=== PATIENT | male | born 1985 | race Caucasian/White ===

== ENCOUNTER 2025-01-12 22:48 | Inpatient (IN) | payer MEDICARE, MEDICAID, SELFPAY ==
--- NOTE | 2025-01-12 23:18 | MHC.EDTECH ---
pt refused labs and urine sample. pt also stated that he hasn't consumed any food or drinks in years.
[2025-01-12 23:19] VITALS: BP 103/64; PULSE 76; RESP 18; TEMP 36.4; O2SAT 96
--- NOTE | 2025-01-12 23:23 | ED.PSYCH ---
HPI - Psych General Chief Complaint: Psychiatric Symptoms Stated Complaint: psych eval Time Seen by Provider: 01/12/25 23:16 Source: patient and EMS Mode of arrival: EMS Limitations: no limitations History of Present Illness ED Provider: Carol Brand NP HPI Narrative: Patient is a 39-year-old male who presents emergency department via EMS on a section 12 from . Evidently sister was concerned about him being missing and had contacted police. They were unsure of his whereabouts. Evidently he was found in his attic beneath insulation, apparently may have been there for approximately 16-24 hours without any oral intake. When asked why he was there he states ?I just worry myself I am scared?. He does not provide much further detail in regards to this. When asked whether he is taking any medications on a daily basis he states ?medications do not help me?. There was expressed concern from family that he may not be taking his olanzapine. He offers no physical complaints at this time. Denies suicidal or homicidal ideations. Denies recreational drug or alcohol usage. Denies auditory or visual hallucinations. Related Data Home Medications ?Medication ?Instructions ?Recorded ?Confirmed gabapentin 300 mg capsule 300 mg PO BID 01/13/25 01/13/25 hydroxyzine pamoate 50 mg capsule 50 mg PO TID 01/13/25 01/13/25 olanzapine 7.5 mg tablet 7.5 mg PO BEDTIME 01/13/25 01/13/25 trazodone 50 mg tablet 50 mg PO BEDTIME PRN insomnia 01/13/25 01/13/25 Allergies Allergy/AdvReac Type Severity Reaction Status Date / Time No Known Allergies Allergy Verified 01/12/25 23:35 Review of Systems Review of Systems: Yes all other systems are reviewed and are negative [facility] Past Medical History Attestation statement: The following information was validated with the patient. Source: old records reviewed Social History Social History Advance Directives: No Advance Directives Information Provided: No Do you have a plan to hurt others: No Plan Physical Exam Vital Signs: Vital Signs: Last Vital Signs Temp 98.5 F 01/13/25 15:34 Pulse 67 01/13/25 15:34 Resp 14 01/13/25 15:34 BP 99/60 01/13/25 15:34 Pulse Ox 97 01/13/25 15:34 O2 Del Method Room Air 01/13/25 15:34 BMI result Body Mass Index 25.2 Appearance: Alert.?Oriented to person, place and time. No acute distress.?Normal affect. Eyes: Pupils equal, round and reactive to light.? ENT: Pharynx normal.??Moist mucous membranes. Neck: Normal inspection.? Neck supple.?? CVS: Heart sounds normal. Normal heart rate and rhythm.? Pulses normal.?? Respiratory: No respiratory distress.? Lung sounds clear to auscultation bilaterally?? Abdomen: Soft and non-tender. Normoactive bowel sounds. Skin: Skin warm and dry.? Normal skin color.? Extremities: No lower extremity edema.? Neuro: Moves all extremities spontaneously. Sensation intact bilaterally. CN II-XII intact. No focal neuro deficits. Ambulates with normal steady gait. Course Course Course Narrative: Time: 07:21 Date: 01/13/25 Provider: Aruna Gonzalez, DO Patient in physician observation for psychiatric evaluation.? No acute events reported overnight other than refusing labs. No current complaints. VS stable.? pending CARE team evaluation. Will continue to monitor. Reevaluation(s) Reevaluation #1: labs from 01/10 [facility] as he is refusing labs Reevaluation #2: Time: 16:07 Date: 01/13/25 Provider: Aruna Gonzalez DO Physician observation ended at 407pm. Patient to be admitted as inpatient to psychiatry. Medical Decision Making Medical Decision Making [facility] Narrative: Patient is a 39-year-old male not known to this emergency department who presents on a section 12 for psychiatric evaluation, evidently has been missing for approximately 24 hours found to be hiding beneath insulation in the attic of his home, likely not having had any oral intake over the past 16-24 hours. He offers no physical complaints in his physical examination at this time is benign. When asked why he was there who does not provide any clear direct answer. [facility] may have been off of his olanzapine recently. Obtain serum labs for medical clearance, refer to care team for further evaluation safe disposition planning. Differential Diagnosis Differential Diagnoses: The differential diagnosis associated with the presentation includes (See narrative above and below for further detail) Admission/Observation Consideration of admission/observation: Escalation of care including admission/observation considered Patient is being observed in the Emergency Department for ?Paranoia, fear, and abnormal behaviors. Observation time was started at 00:50 on 01/14/2020.?The patient is currently stable and non-toxic appearing. Observation is being initiated in the Emergency Department to allow time to help differentiate if the patient's presentation is due to Substance Induced Mood Disorder and Anxiety versus Major Depressive Disorder, Bipolar Ana Maria, Bipolar Depression, and Schizophrenia. The patient will receive frequent psychiatric assessments from the provider as well as from nursing staff. The patient will also be monitored for the need of PRN agitation medications such as Haldol, Ativan, and Benadryl. Consult Healthcare Provider Management of the patient was discussed with: Behavioral Health Provider (CARE team) Lab Data MDM Lab Attestation statement: I reviewed the patient's lab results. Independent Historian Clinical information obtained from an independent historian. History obtained from or confirmed by: EMS Discharge Plan Discharge Clinical Impression: Acute psychosis Patient Disposition: Admitted As Inpatient
[2025-01-12 23:29] VITALS: BP 103/64; PULSE 76; RESP 16; TEMP 36.4; O2SAT 96; BMI 25.2
--- NOTE | 2025-01-13 02:45 | PC.NURSE ---
provider requested staff ask patient a second time for labs, as client previously had agreed.
--- NOTE | 2025-01-13 02:47 | MHC.EDTECH ---
Spoke to the patient, Patient stated He'll think about it. However refusing at this time.
--- NOTE | 2025-01-13 12:37 | MHC.EDTECH ---
patient politely declined to provide urine sample and have an EKG at this time. RN aware.
--- NOTE | 2025-01-13 12:45 | PC.NURSE ---
Patient continues to refuse to given urine sample or allow for ekg to be obtained
--- NOTE | 2025-01-13 13:11 | PC.NURSE ---
Patient continues to refuse labs, ekg, food/fluids. Patient aware that sister calls and she would like him to call her- shaking head no he does not want to speak to her. Provider aware
--- NOTE | 2025-01-13 15:12 | MHC.CARE ---
Pt assessed by the CARE Team and found IPLOC
[2025-01-13 15:34] VITALS: BP 99/60; PULSE 67; RESP 14; TEMP 36.9; O2SAT 97
--- NOTE | 2025-01-13 16:22 | PC.NURSE ---
Report given to RN on M3.
--- NOTE | 2025-01-13 16:31 | PC.NURSE ---
Addendum entered by Yanelis Ackerman RN 01/13/25 18:07: Pt gave verbal permission for me to speak with sister Darline by phone. She reports pt was at [place] 12/20 to 01/04/25 and was discharged, because he wasn't eating. Last psych hospitalization was 8 years before that. She states pt is having issues with gall bladder and has appt with GI surgeon for future cholecystectomy. Original Note: Audi was admitted to at 1600 from [facility] Pod on 12b ffor treatment of psychosis. He had been reported as a missing person x 2 days but was found laying under insulation in the attic of his home having no po intake for days (He has not had po intake in the ED either.) Family reportedly thinks he has not taken his prescribed olanzapine x several days. He is refusing labs including tox screen, ekg.? He reluctantly allowed plant changer/ skin check but declined vs on arrival.? He is alert but not willing to participate in admission assessment. Admission is therefore based on crisis eval. Mood is appears depressed. Affect is anxious and guarded. He appears hypervigilant. Thought Process is disorganized. He does not voice ideation, plan or intent to harm self or others. Per police report pt is ?in need of surgery? but pt declines to discuss. He denies physical complaint. Safety Checks are q 15 minutes.
[2025-01-13 18:10] VITALS: BMI 24.9
[2025-01-13 20:53] VITALS: RESP 16
--- NOTE | 2025-01-14 13:46 | P.HPPS_ITS ---
HPI Date of Service: 01/14/25 Chief Complaint: crisis Sources of Information: patient interviewed, chart reviewed and crisis/core team assessment reviewed HPI Subjective Notes: Section 12B Narrative: Patient is a 39 yo male who lives in [place] with family. Patient carries a diagnosis of schizoaffective disorder. Patient was brought to the hospital after he went missing for 24 hours and was found in his attic under the insulation hiding. Patient has been uncooperative providing history with ED, CARE team and this internal communications writer. He shrugs his shoulder or nods but is not communicating verbally. Patient has not been taking medications for at least the past 2 months but reported to be functional when taking his Olanzapine. Patient's sister reported to CARE team he has not been sleeping, acting scared and hasn't spoken to family last 2 weeks. Patient seen in his room. He is awake. Looks at the ceiling. Poor eye contact. Shrugs his shoulder when asked how he's feeling. Non-verbal. Internally preoccupied. Past Psychiatric History: - Prior inpatient treatment at [facility] and [facility] reported in CARE team assessment. - Hx of VNA services. Medical Evaluation Reviewed: Yes [facility] Family History: Brother OD, unknown if intentional Social History: Born and raised in [place] [facility] [place] age 13 when he moved to [facility]. Lives with family in [place]. . Has 3 children. On disability. 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 Substance History: none reported Trauma History: unknown Diagnostics Vital Signs (24Hr): Vital Signs - 24 hr 01/13/25 15:34 01/13/25 20:53 Temperature 98.5 F Pulse Rate 67 Respiratory Rate 14 16 Blood Pressure 99/60 Pulse Oximetry 97 Oxygen Delivery Method Room Air BMI result Body Mass Index 24.9 Meds/Allergies Meds Home Medications ?Medication ?Instructions ?Recorded ?Confirmed ?Type gabapentin 300 mg capsule 300 mg PO BID 01/13/25 01/13/25 History hydroxyzine pamoate 50 mg capsule 50 mg PO TID 01/13/25 01/13/25 History olanzapine 7.5 mg tablet 7.5 mg PO BEDTIME 01/13/25 01/13/25 History trazodone 50 mg tablet 50 mg PO BEDTIME PRN insomnia 01/13/25 01/13/25 History Allergies Allergies Allergy/AdvReac Type Severity Reaction Status Date / Time No Known Allergies Allergy Verified 01/12/25 23:35 Mental Status Exam Mental Status Exam Narrative: General appearance: covered self with blanket. Alert. Not communicating verbally. Stares at ceiling. Eye contact: Poor. Musculoskeletal: Normal muscle strength/tone, Normal gait and station, No abnormal involuntary movements like tremors, EPS or dyskinesia. No psychomotor agitation or retardation.??? Manner/behavior: Uncooperative Speech:? Not talking. Mood: No response. Did say he was scared in the CARE team assesment. Affect: Blunted Thought process/associations: Blocked?? Thought content:?Paranoid Hallucinations: Suspected. Internally preoccupied. Suicidality/self-destructive behavior: not reported Homicidally/violence: not reported.? Reliability: poor.? ? Judgment: poor.? ? Insight: poor Cognition: Alert Impulse control and emotional regulation: poor Intelligence estimate: average.? Assessment & Plan Assessment & Plan (1) Schizoaffective disorder: Status: Acute Code(s): F25.9 - Schizoaffective disorder, unspecified Plan 39 yo male with reported past history of schizoaffective disorder, admitted after going missing for 24 hours and found hiding in the attic under the attic insulation. He has not been taking his medicaitons for at least 2 months and has been showing functional decline, paranoia, anxiety, and behavioral change. PLAN: - Admit to inpatient psychiatry - CV - Collateral information from family and providers. - Milieu treatment and group therapy. - Medications: Restart Olanzapine. Start Ativan 1 mg TID for catatonia spectrum symptoms/behavior. Encourage medication compliance. - Social work evaluation. - Disposition planning. Patient educated on: therapeutic strategies Reason for continued inpatient stay Substantial Risk for: harm to self, inability to function and rapid decompensation Statement Statement: I have reviewed the history and physical and performed a pertinent examination on my patient. No changes have occurred unless specified. If the History and Physical was not performed prior to admission, the Hospitalist's service will be consulted for completing the admission physical. Time Spent With Patient Time: Total time managing care of this patient today ____ minutes.
--- NOTE | 2025-01-14 17:01 | PC.NURSE ---
Pt was offered the opportunity to complete UA order x2. He declined both times.
[2025-01-14 19:50] VITALS: RESP 16
[2025-01-15 10:50] VITALS: BP 101/57; PULSE 57; RESP 15; TEMP 36.9; O2SAT 97
--- NOTE | 2025-01-15 11:12 | PC.NURSE ---
This morning Deion declined am medications and vital signs. He shook his head no when offered and yes when I asked to confirm his refusal. I brought him bottles of water and ensures - all sealed - and he declined them all. I did pt education regarding the body's need for food and fluids. He continued to decline. I met with Dr Campuzano to express concerns. Pt later allowed vs and they were stable. I offered medications again and he refused them stating, I don't need meds anymore. Dr Campuzano aware.
--- NOTE | 2025-01-15 14:36 | P.PNPSI_ITS ---
Subjective Subjective Date of Service: 01/15/25 Reason For Visit: crisis Interim History: Patient remains in bed. Not engaged. Minimal verbal communication. He was approached with his RN today. When asked how he is doing he gave a thumbs up. He was educated about his medications which he refused. He said I don't need them anymore. He was asked to have something to eat which he declined. He was offered unopened containers of ensure and water bottles. Patient refused. He has not been eating or drinking. Refusing all his medications. He is alert on approach and his eyes are open. He got irritated at one point and said what do you want from me?! I'm fine! VSS Review of Systems Review of Systems Yes all other systems are reviewed and are negative Mental Status Exam Mental Status Exam Narrative: General appearance: covered self with blanket. Alert. Not communicating verbally. Stares at ceiling. Eye contact: Poor. Musculoskeletal: Normal muscle strength/tone, Normal gait and station, No abnormal involuntary movements like tremors, EPS or dyskinesia. No psychomotor agitation or retardation.??? Manner/behavior: Uncooperative Speech:? Not talking. Mood: No response. Did say he was scared in the CARE team assesment. Affect: Blunted Thought process/associations: Blocked?? Thought content:?Paranoid Hallucinations: Suspected. Internally preoccupied. Suicidality/self-destructive behavior: not reported Homicidally/violence: not reported.? Reliability: poor.? ? Judgment: poor.? ? Insight: poor Cognition: Alert Impulse control and emotional regulation: poor Intelligence estimate: average.? Diagnostics Vital Signs (24Hr): Vital Signs - 24 hr 01/14/25 19:50 01/15/25 10:50 Temperature 98.5 F Pulse Rate 57 Respiratory Rate 16 15 Blood Pressure 101/57 L Pulse Oximetry 97 Oxygen Delivery Method Room Air BMI result Body Mass Index 24.9 Medications Medications Current Medications Acetaminophen (Acetaminophen 325 Mg Tablet) 650 mg PO Q6H PRN PRN Reason: Headache/Pain, Scale 1-10 Al Hydroxide/Mg Hydroxide (Magnesium Hydrox/Alum Hydrox 30 Ml Oral.Susp) 30 ml PO Q6H PRN PRN Reason: Heartburn/Nausea Gabapentin (Gabapentin 300 Mg Capsule) 300 mg PO BID ROSA MARIA Last Admin: 01/15/25 08:54 Dose: Not Given Hydroxyzine HCl (Hydroxyzine Hcl 50 Mg Tablet) 50 mg PO TID [facility] Last Admin: 01/15/25 08:54 Dose: Not Given Lorazepam (Lorazepam 1 Mg Tablet) 1 mg PO TID [facility] Last Admin: 01/15/25 08:54 Dose: Not Given Magnesium Hydroxide (Milk Of Magnesia 30 Ml Oral.Susp) 30 ml PO DAILY PRN PRN Reason: Constipation Nicotine Polacrilex (Nicotine Polacrilex 2 Mg Gum) 4 mg BUCCAL Q2H PRN PRN Reason: Nicotine Cravings Olanzapine (Olanzapine 7.5 Mg Tablet) 7.5 mg PO BEDTIME [facility] Last Admin: 01/14/25 21:25 Dose: Not Given Trazodone HCl (Trazodone Hcl 50 Mg Tablet) 50 mg PO BEDTIME PRN PRN Reason: insomnia Allergies Allergies Allergy/AdvReac Type Severity Reaction Status Date / Time No Known Allergies Allergy Verified 01/12/25 23:35 Assessment & Plan Assessment & Plan (1) Schizoaffective disorder: Status: Acute Code(s): F25.9 - Schizoaffective disorder, unspecified Plan 39 yo male with reported past history of schizoaffective disorder, admitted after going missing for 24 hours and found hiding in the attic under the attic insulation. He has not been taking his medicaitons for at least 2 months and has been showing functional decline, paranoia, anxiety, and behavioral change. PLAN: - Admit to inpatient psychiatry - CV - Collateral information from family and providers. - Milieu treatment and group therapy. - Medications: Restart Olanzapine. Start Ativan 1 mg TID for catatonia spectrum symptoms/behavior. Encourage medication compliance. - Social work evaluation. - Disposition planning. 01/15: Not eating or drinking. Minimal verbal and non-verbal communication. Inter jarrett preoccupied Paranoid. Will order admission blood work again in the hopes patient agrees to have them drawn. continue current management and treatment plan. Reason for continued inpatient stay Substantial Risk for: harm to self, inability to function, rapid decompensation and med/psych decompensation Time Spent With Patient Time: Total time managing care of this patient today ____ minutes.
[2025-01-15 20:00] VITALS: RESP 16
--- NOTE | 2025-01-15 22:55 | PC.NURSE ---
At around 0, RN offered Deion his HS medications. Pt avoided eye contact, refused to respond, shaking his head and moving away when RN began asking assessment questions. Pt did not accept HS medications when offered. Offered pt water, pt declined but accepted cranberry juice. Drank 2 4oz juices.
--- NOTE | 2025-01-16 14:29 | HO.PSYCHPN ---
Subjective Subjective Date of Service: 01/16/25 Reason For Visit: crisis Subjective Notes: Franz Warning Interim History: lying in bed awake. no eye contact. shakes head to question of anything MD can do for him today. no response to other questions. franz warning provided. per staff, 12b up tomorrow. in bed all shift. refused food and fluids days. no urine output. paranoid, flat. no eye contact. drank 8 oz cranberry juice last NOC. slept 8 hours. Mental Status Exam Mental Status Exam Narrative: General appearance: Alert. Not communicating verbally. Staring away. adequately dressed and groomed. Eye contact: Poor. Motor:: No psychomotor agitation or retardation.??? Manner/behavior: Uncooperative Speech:? Not talking. Mood: No response. Affect: Blunted Thought process/associations: unknown Thought content:?unknown Hallucinations: Suspected. Internally preoccupied. Suicidality/self-destructive behavior: not reported Homicidally/violence: not reported.? Reliability: poor.? ? Judgment: poor.? ? Insight: poor Cognition: Alert Impulse control and emotional regulation: poor Diagnostics Vital Signs (24Hr): Vital Signs - 24 hr 01/15/25 20:00 Respiratory Rate 16 BMI result Body Mass Index 24.9 Medications Medications Current Medications Acetaminophen (Acetaminophen 325 Mg Tablet) 650 mg PO Q6H PRN PRN Reason: Headache/Pain, Scale 1-10 Al Hydroxide/Mg Hydroxide (Magnesium Hydrox/Alum Hydrox 30 Ml Oral.Susp) 30 ml PO Q6H PRN PRN Reason: Heartburn/Nausea Gabapentin (Gabapentin 300 Mg Capsule) 300 mg PO BID [facility] Last Admin: 01/16/25 09:10 Dose: Not Given Hydroxyzine HCl (Hydroxyzine Hcl 50 Mg Tablet) 50 mg PO TID [facility] Last Admin: 01/16/25 09:10 Dose: Not Given Lorazepam (Lorazepam 1 Mg Tablet) 1 mg PO TID [facility] Last Admin: 01/16/25 09:11 Dose: Not Given Magnesium Hydroxide (Milk Of Magnesia 30 Ml Oral.Susp) 30 ml PO DAILY PRN PRN Reason: Constipation Nicotine Polacrilex (Nicotine Polacrilex 2 Mg Gum) 4 mg BUCCAL Q2H PRN PRN Reason: Nicotine Cravings Olanzapine (Olanzapine 7.5 Mg Tablet) 7.5 mg PO BEDTIME [facility] Last Admin: 01/15/25 21:41 Dose: Not Given Trazodone HCl (Trazodone Hcl 50 Mg Tablet) 50 mg PO BEDTIME PRN PRN Reason: insomnia Allergies Allergies Allergy/AdvReac Type Severity Reaction Status Date / Time No Known Allergies Allergy Verified 01/12/25 23:35 Assessment & Plan Assessment & Plan (1) Schizoaffective disorder: Status: Acute Code(s): F25.9 - Schizoaffective disorder, unspecified Plan 39 yo male with reported past history of schizoaffective disorder, admitted after going missing for 24 hours and found hiding in the attic under the attic insulation. He has not been taking his medicaitons for at least 2 months and has been showing functional decline, paranoia, anxiety, and behavioral change. PLAN: - Admit to inpatient psychiatry - CV - Collateral information from family and providers. - Milieu treatment and group therapy. - Medications: Restart Olanzapine. Start Ativan 1 mg TID for catatonia spectrum symptoms/behavior. Encourage medication compliance. - Social work evaluation. - Disposition planning. 01/15: Not eating or drinking. Minimal verbal and non-verbal communication. Internally preoccupied Paranoid. Will order admission blood work again in the hopes patient agrees to have them drawn. continue current management and treatment plan. 01/16: encouraged PO fluids. no eye contact. responded to 1 question only with a head shake. continue to offer medication and encourage PO intake. plan to file for commitment. Reason for continued inpatient stay Substantial Risk for: inability to function and med/psych decompensation Time Spent With Patient Time: Total time managing care of this patient today __25__ minutes.
[2025-01-16 20:00] VITALS: RESP 16
--- NOTE | 2025-01-17 01:07 | PC.NURSE ---
At around 2140 this evening, RN offered Deion his scheduled HS medications. Deion did make eye contact tonight, still avoided verbal responses, only shrugging his shoulders in response to questions. When asked if pt had used the bathroom, drank, or eaten, pt was observed shrugging shoulders. Declined to participate in 1:1. Pt refused to accept his scheduled HS meds. Dr. Gaona was notified.?
--- NOTE | 2025-01-17 01:17 | PC.NURSE ---
Addendum entered by Rosanna Gilbert RN 01/17/25 01:23: *stop snoring Original Note: At around 0100, pt threatened to dump his pitcher of water over his snoring roommates head to get him to stop sleeping. RN and [facility] offered ear plugs and to move into a quieter sie room. Pt stated , No I was here first. I'm not moving and shouldn't have to. You need to move him Pt refuses to leave room when given the option. After offering these options again, pt shut down, became quiet, and refused to respond.
--- NOTE | 2025-01-17 14:03 | P.CONGS_ITS ---
History of Present Illness Consult details Consult date: 01/17/25 Narrative: 39-year-old male admitted for schizoaffective disorder, here in the psych unit because of severe depression. He apparently had been missing for up least 24 hours and was eventually found in the attic at home.. He has not been taking his medications for his schizoaffective disorder. He has had some functional decline over the past few months. He has been refusing to answer many questions. He does not have eye contact. He had apparently stated that he had been seen in [facility] and was told he had gallstones. I was therefore asked to see him because of this. He did say that he did not have any abdominal pain currently. He has had very poor oral intake as he is refusing to eat stating that he does not need food. Review of Systems Review of Systems: Patient receiving to answer most questions Yes Unobtainable due to mental status [facility] Social History Social History Household Members: Family Housing: House Do you presently have visiting nurse or other home services: No Patient Tobacco Use Status: Never used Tobacco Currently Displaying Signs/Symptoms of Drug Intoxication Withdrawal: No Advance Directives: No Advance Directives Information Provided: No Do you have thoughts of harming others: None Do you have a plan to hurt others: No Plan Recently lost weight without trying: Unsure Nutrition Risks: No Nutritional Risk service: No Sexual orientation: Straight/Heterosexual Meds Allergies Allergy/AdvReac Type Severity Reaction Status Date / Time No Known Allergies Allergy Verified 01/12/25 23:35 Active Medications: Current Medications Acetaminophen (Acetaminophen 325 Mg Tablet) 650 mg PO Q6H PRN PRN Reason: Headache/Pain, Scale 1-10 Al Hydroxide/Mg Hydroxide (Magnesium Hydrox/Alum Hydrox 30 Ml Oral.Susp) 30 ml PO Q6H PRN PRN Reason: Heartburn/Nausea Gabapentin (Gabapentin 300 Mg Capsule) 300 mg PO BID REPLACED BY [facility] Last Admin: 01/17/25 08:46 Dose: Not Given Hydroxyzine HCl (Hydroxyzine Hcl 50 Mg Tablet) 50 mg PO TID REPLACED BY [facility] Last Admin: 01/17/25 08:46 Dose: Not Given Lorazepam (Lorazepam 1 Mg Tablet) 1 mg PO TID REPLACED BY [facility] Last Admin: 01/17/25 08:46 Dose: Not Given Magnesium Hydroxide (Milk Of Magnesia 30 Ml Oral.Susp) 30 ml PO DAILY PRN PRN Reason: Constipation Nicotine Polacrilex (Nicotine Polacrilex 2 Mg Gum) 4 mg BUCCAL Q2H PRN PRN Reason: Nicotine Cravings Olanzapine (Olanzapine 7.5 Mg Tablet) 7.5 mg PO BEDTIME [facility] Last Admin: 01/16/25 21:41 Dose: Not Given Trazodone HCl (Trazodone Hcl 50 Mg Tablet) 50 mg PO BEDTIME PRN PRN Reason: insomnia Home Medications ?Medication ?Instructions ?Recorded ?Confirmed ?Last Taken ?Type gabapentin 300 mg capsule 300 mg PO BID 01/13/25 01/13/25 Unknown History hydroxyzine pamoate 50 mg capsule 50 mg PO TID 01/13/25 01/13/25 Unknown History olanzapine 7.5 mg tablet 7.5 mg PO BEDTIME 01/13/25 01/13/25 Unknown History trazodone 50 mg tablet 50 mg PO BEDTIME PRN insomnia 01/13/25 01/13/25 Unknown History Physical Exam Vital Signs: Vital Signs: Last Vital Signs Temp 98.5 F 01/15/25 10:50 Pulse 57 01/15/25 10:50 Resp 16 01/16/25 20:00 BP 101/57 L 01/15/25 10:50 Pulse Ox 97 01/15/25 10:50 O2 Del Method Room Air 01/15/25 10:50 BMI result Body Mass Index 24.9 Const: Other: With a very flat affect, does not want to answer most questions very little verbal output General: comfortable and no acute distress Resp: Effort & Inspection: normal respiratory effort Cardio: Rate: regular rate GI: Palpation (GI): Soft to palpation, not firm, nontender and no guarding Results Labs Labs: All other labs normal. Assessment and Plan (1) Schizoaffective disorder: Status: Acute He was admitted because of severe depression. He has been refusing to eat has had very poor oral intake. He has a functional decline for several months because of his mental health issues. Has been refusing his medications as well. He apparently had mentioned that he was told he had gallstones. I was therefore asked to see him. Currently he does not have any tenderness. He denies any pain in the abdomen when asked It may be best to retrieve his records from [facility]. Otherwise, we can repeat his in our hospital. It does not appear that there is any indication for any urgent surgery at this time. Procedures Date of Service Date of Service: 01/24/25
--- NOTE | 2025-01-17 15:07 | P.PNPSI_ITS ---
Subjective Subjective Date of Service: 01/17/25 Reason For Visit: crisis Subjective Notes: Franz Warning Interim History: mute. shakes head to questions of any needs. provided franz warning. informed we may be filing. no reaction. encouraged to take PO fluids. informed surgery consult placed due to [facility] gallbladder disease Dx. per staff, 12b up tomorrow. slept 4 hours overnight. deeply depressed, passive SI per RN Tyron. refused VS and HS meds. threatened to dump water pitcher on roommate due to roommate's snoring. Mental Status Exam Mental Status Exam Narrative: General appearance: Alert. Not communicating verbally. Staring away. adequately dressed and groomed. Eye contact: Poor. Motor:: No psychomotor agitation or retardation.??? Manner/behavior: Uncooperative Speech:? Not talking. Mood: No response. Affect: Blunted Thought process/associations: unknown Thought content:?unknown Hallucinations: Suspected. Internally preoccupied. Suicidality/self-destructive behavior: not reported Homicidally/violence: not reported.? Reliability: poor.? ? Judgment: poor.? ? Insight: poor Cognition: Alert Impulse control and emotional regulation: poor Diagnostics Vital Signs (24Hr): Vital Signs - 24 hr 01/16/25 20:00 Respiratory Rate 16 BMI result Body Mass Index 24.9 Medications Medications Current Medications Acetaminophen (Acetaminophen 325 Mg Tablet) 650 mg PO Q6H PRN PRN Reason: Headache/Pain, Scale 1-10 Al Hydroxide/Mg Hydroxide (Magnesium Hydrox/Alum Hydrox 30 Ml Oral.Susp) 30 ml PO Q6H PRN PRN Reason: Heartburn/Nausea Gabapentin (Gabapentin 300 Mg Capsule) 300 mg PO BID [facility] Last Admin: 01/17/25 08:46 Dose: Not Given Hydroxyzine HCl (Hydroxyzine Hcl 50 Mg Tablet) 50 mg PO TID [facility] Last Admin: 01/17/25 08:46 Dose: Not Given Lorazepam (Lorazepam 1 Mg Tablet) 1 mg PO TID [facility] Last Admin: 01/17/25 08:46 Dose: Not Given Magnesium Hydroxide (Milk Of Magnesia 30 Ml Oral.Susp) 30 ml PO DAILY PRN PRN Reason: Constipation Nicotine Polacrilex (Nicotine Polacrilex 2 Mg Gum) 4 mg BUCCAL Q2H PRN PRN Reason: Nicotine Cravings Olanzapine (Olanzapine 7.5 Mg Tablet) 7.5 mg PO BEDTIME [facility] Last Admin: 01/16/25 21:41 Dose: Not Given Trazodone HCl (Trazodone Hcl 50 Mg Tablet) 50 mg PO BEDTIME PRN PRN Reason: insomnia Allergies Allergies Allergy/AdvReac Type Severity Reaction Status Date / Time No Known Allergies Allergy Verified 01/12/25 23:35 Assessment & Plan Assessment & Plan (1) Schizoaffective disorder: Status: Acute Code(s): F25.9 - Schizoaffective disorder, unspecified (2) Gallbladder attack: Status: Acute Code(s): K82.9 - Disease of gallbladder, unspecified Assessment and Plan: He was admitted because of severe depression. He has been refusing to eat has had very poor oral intake. He has a functional decline for several months because of his mental health issues. Has been refusing his medications as well. He apparently had mentioned that he was told he had gallstones. I was therefore asked to see him. Currently he does not have any tenderness. He denies any pain in the abdomen when asked It may be best to retrieve his records from [facility]. Otherwise, we can repeat his in our hospital. It does not appear that there is any indication for any urgent surgery at this time. Plan 39 yo male with reported past history of schizoaffective disorder, admitted after going missing for 24 hours and found hiding in the attic under the attic insulation. He has not been taking his medications for at least 2 months and has been showing functional decline, paranoia, anxiety, and behavioral change. 01/14: Restart Olanzapine. Start Ativan 1 mg TID for catatonia spectrum symptoms/behavior. Encourage medication compliance. Social work evaluation. Disposition planning. 01/15: Not eating or drinking. Minimal verbal and non-verbal communication. Internally preoccupied Paranoid. Will order admission blood work again in the hopes patient agrees to have them drawn. continue current management and treatment plan. 01/16: encouraged PO fluids. no eye contact. responded to 1 question only with a head shake. continue to offer medication and encourage PO intake. plan to file for commitment. surgical consult appreciated, will not consider anorexia as related to treatable medical condition. case d/w surgeon tianna. Reason for continued inpatient stay Substantial Risk for: med/psych decompensation Time Spent With Patient Time: Total time managing care of this patient today __35__ minutes.
[2025-01-17 20:00] VITALS: BP 119/75; PULSE 74; RESP 16; TEMP 36.6; O2SAT 97
--- NOTE | 2025-01-17 21:20 | PC.NURSE ---
Pt refused HS meds at 2100. He is difficult to engage and isolative to self.
[2025-01-18 12:24] VITALS: BMI 25.3
--- NOTE | 2025-01-18 13:29 | HO.PSYCHPN ---
Subjective Subjective Date of Service: 01/18/25 Reason For Visit: crisis Interim History: some verbal engagement today. references seeing angels prior to admission. doesn't know where he'd live or stay if he weren't in the hospital. states he was brought here and will sign nothing. c/o vomiting after eating, so says he simply can't eat. states he is taking some fluids. denies abd pain after eating. 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 pt states he has tried a great many medications and nothing has worked. he was educated re ECT and encouraged to consider it. 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 denies SI/HI. refused HS meds. showered. slept 8 hours. refused VS, meds, breakfast this morning. Mental Status Exam Mental Status Exam Narrative: General appearance: Alert. communicating verbally. adequately dressed and groomed. Eye contact: Poor. Motor:: No psychomotor agitation or retardation.??? Manner/behavior: cooperative Speech:? decr amount, loudness. nml, rate. Mood: depressed Affect: Blunted Thought process/associations: linear, questionably logical Thought content:?pessimistic re Tx and improvement, spiritual not mental illness Hallucinations: Suspected. Internally preoccupied. mentioned seeing an kale ROVING WINDER. Suicidality/self-destructive behavior: not reported Homicidally/violence: not reported.? Reliability: poor.? ? Judgment: poor.? ? Insight: poor Cognition: Alert Impulse control and emotional regulation: poor Diagnostics Vital Signs (24Hr): Vital Signs - 24 hr 01/17/25 20:00 Temperature 97.8 F Pulse Rate 74 Respiratory Rate 16 Blood Pressure 119/75 Pulse Oximetry 97 Oxygen Delivery Method Room Air BMI result Body Mass Index 25.3 Medications Medications Current Medications Acetaminophen (Acetaminophen 325 Mg Tablet) 650 mg PO Q6H PRN PRN Reason: Headache/Pain, Scale 1-10 Al Hydroxide/Mg Hydroxide (Magnesium Hydrox/Alum Hydrox 30 Ml Oral.Susp) 30 ml PO Q6H PRN PRN Reason: Heartburn/Nausea Gabapentin (Gabapentin 300 Mg Capsule) 300 mg PO BID [facility] Last Admin: 01/18/25 08:34 Dose: Not Given Hydroxyzine HCl (Hydroxyzine Hcl 50 Mg Tablet) 50 mg PO TID [facility] Last Admin: 01/18/25 08:35 Dose: Not Given Lorazepam (Lorazepam 1 Mg Tablet) 1 mg PO TID [facility] Last Admin: 01/18/25 08:35 Dose: Not Given Magnesium Hydroxide (Milk Of Magnesia 30 Ml Oral.Susp) 30 ml PO DAILY PRN PRN Reason: Constipation Nicotine Polacrilex (Nicotine Polacrilex 2 Mg Gum) 4 mg BUCCAL Q2H PRN PRN Reason: Nicotine Cravings Olanzapine (Olanzapine 7.5 Mg Tablet) 7.5 mg PO BEDTIME [facility] Last Admin: 01/17/25 21:19 Dose: Not Given Trazodone HCl (Trazodone Hcl 50 Mg Tablet) 50 mg PO BEDTIME PRN PRN Reason: insomnia Allergies Allergies Allergy/AdvReac Type Severity Reaction Status Date / Time No Known Allergies Allergy Verified 01/12/25 23:35 Assessment & Plan Assessment & Plan (1) Schizoaffective disorder: Status: Acute Code(s): F25.9 - Schizoaffective disorder, unspecified (2) Gallbladder attack: Status: Acute Code(s): K82.9 - Disease of gallbladder, unspecified Assessment and Plan: He was admitted because of severe depression. He has been refusing to eat has had very poor oral intake. He has a functional decline for several months because of his mental health issues. Has been refusing his medications as well. He apparently had mentioned that he was told he had gallstones. I was therefore asked to see him. Currently he does not have any tenderness. He denies any pain in the abdomen when asked It may be best to retrieve his records from [facility]. Otherwise, we can repeat his in our hospital. It does not appear that there is any indication for any urgent surgery at this time. Plan 39 yo male with reported past history of schizoaffective disorder, admitted after going missing for 24 hours and found hiding in the attic under the attic insulation. He has not been taking his medications for at least 2 months and has been showing functional decline, paranoia, anxiety, and behavioral change. 01/14: Restart Olanzapine. Start Ativan 1 mg TID for catatonia spectrum symptoms/behavior. Encourage medication compliance. Social work evaluation. Disposition planning. 01/15: Not eating or drinking. Minimal verbal and non-verbal communication. Internally preoccupied Paranoid. Will order admission blood work again in the hopes patient agrees to have them drawn. continue current management and treatment plan. 01/16: encouraged PO fluids. no eye contact. responded to 1 question only with a head shake. continue to offer medication and encourage PO intake. plan to file for commitment. surgical consult appreciated, will not consider anorexia as related to treatable medical condition. case d/w surgeon tianna. 01/18: more verbal today. states not eating bcse vomits after eating anything; not witnessed. reports having seen an kale ROVING WINDER. c/o depressed mood with hopelessness it will improve. states it is useless to try medications bcse he has tried so many and they don't work. educated re ECT as an option. continue to offer medication. file for commitment today. Reason for continued inpatient stay Substantial Risk for: harm to self, inability to function and med/psych decompensation Time Spent With Patient Time: Total time managing care of this patient today __25__ minutes.
[2025-01-18 19:26] VITALS: BP 100/70; PULSE 84; RESP 16; TEMP 36.6; O2SAT 99
--- NOTE | 2025-01-19 15:18 | HO.PSYCHPN ---
Subjective Subjective Date of Service: 01/19/25 Reason For Visit: crisis Interim History: pt states he can't take meds due to vomiting after. declines to try oral disintegrating tab. denies eating anything yesterday despite staff report he claimed to have eaten 50% of one meal and 100% of another. gained weight since admission. he is not sure how that might have happened as he has not been eating. states he can't think straight. endorsing full-body pain but also emotional and spiritual pain. on being asked in what way he can't think, he lowers his hands over his eyes and states, somebody closed my vision. states he wishes he could find his real father, reports the person he lives with is not his real father. provided education re ECT. per staff, refusing meds, VS. almost always in his room. claimed to have eaten 50% and 100% meals. slept 7 hours. c/o pain all over, as well as in my heart, my brain, my soul. Mental Status Exam Mental Status Exam Narrative: General appearance: Alert. communicating verbally. adequately dressed and groomed. Eye contact: fair. Motor:: general retardation.??? Manner/behavior: cooperative Speech:? decr amount, loudness. nml, rate. Mood: sad Affect: Blunted Thought process/associations: linear, questionably logical Thought content:?pessimistic re Tx and improvement, phys, spiritual illness Hallucinations: Suspected. Internally preoccupied. mentioned seeing an kale SOFTWARE SUPPORT ANALYST. Suicidality/self-destructive behavior: not reported Homicidally/violence: not reported.? Reliability: poor.? ? Judgment: poor.? ? Insight: poor Cognition: Alert Impulse control and emotional regulation: poor Diagnostics Vital Signs (24Hr): Vital Signs - 24 hr 01/18/25 19:26 Temperature 97.9 F Pulse Rate 84 Respiratory Rate 16 Blood Pressure 100/70 Pulse Oximetry 99 Oxygen Delivery Method Room Air BMI result Body Mass Index 25.3 Medications Medications Current Medications Acetaminophen (Acetaminophen 325 Mg Tablet) 650 mg PO Q6H PRN PRN Reason: Headache/Pain, Scale 1-10 Al Hydroxide/Mg Hydroxide (Magnesium Hydrox/Alum Hydrox 30 Ml Oral.Susp) 30 ml PO Q6H PRN PRN Reason: Heartburn/Nausea Gabapentin (Gabapentin 300 Mg Capsule) 300 mg PO BID [facility] Last Admin: 01/19/25 08:32 Dose: Not Given Hydroxyzine HCl (Hydroxyzine Hcl 50 Mg Tablet) 50 mg PO TID [facility] Last Admin: 01/19/25 14:54 Dose: Not Given Lorazepam (Lorazepam 1 Mg Tablet) 1 mg PO TID [facility] Last Admin: 01/19/25 14:54 Dose: Not Given Magnesium Hydroxide (Milk Of Magnesia 30 Ml Oral.Susp) 30 ml PO DAILY PRN PRN Reason: Constipation Nicotine Polacrilex (Nicotine Polacrilex 2 Mg Gum) 4 mg BUCCAL Q2H PRN PRN Reason: Nicotine Cravings Olanzapine (Olanzapine 7.5 Mg Tablet) 7.5 mg PO BEDTIME [facility] Last Admin: 01/18/25 22:40 Dose: Not Given Trazodone HCl (Trazodone Hcl 50 Mg Tablet) 50 mg PO BEDTIME PRN PRN Reason: insomnia Allergies Allergies Allergy/AdvReac Type Severity Reaction Status Date / Time No Known Allergies Allergy Verified 01/12/25 23:35 Assessment & Plan Assessment & Plan (1) Schizoaffective disorder: Status: Acute Code(s): F25.9 - Schizoaffective disorder, unspecified (2) Gallbladder attack: Status: Acute Code(s): K82.9 - Disease of gallbladder, unspecified Assessment and Plan: He was admitted because of severe depression. He has been refusing to eat has had very poor oral intake. He has a functional decline for several months because of his mental health issues. Has been refusing his medications as well. He apparently had mentioned that he was told he had gallstones. I was therefore asked to see him. Currently he does not have any tenderness. He denies any pain in the abdomen when asked It may be best to retrieve his records from [facility]. Otherwise, we can repeat his in our hospital. It does not appear that there is any indication for any urgent surgery at this time. Plan 39 yo male with reported past history of schizoaffective disorder, admitted after going missing for 24 hours and found hiding in the attic under the attic insulation. He has not been taking his medications for at least 2 months and has been showing functional decline, paranoia, anxiety, and behavioral change. 01/14: Restart Olanzapine. Start Ativan 1 mg TID for catatonia spectrum symptoms/behavior. Encourage medication compliance. Social work evaluation. Disposition planning. 01/15: Not eating or drinking. Minimal verbal and non-verbal communication. Internally preoccupied Paranoid. Will order admission blood work again in the hopes patient agrees to have them drawn. continue current management and treatment plan. 01/16: encouraged PO fluids. no eye contact. responded to 1 question only with a head shake. continue to offer medication and encourage PO intake. plan to file for commitment. surgical consult appreciated, will not consider anorexia as related to treatable medical condition. case d/w surgeon tianna. 01/18: more verbal today. states not eating bcse vomits after eating anything; not witnessed. reports having seen an kale SOFTWARE SUPPORT ANALYST. c/o depressed mood with hopelessness it will improve. states it is useless to try medications bcse he has tried so many and they don't work. educated re ECT as an option. continue to offer medication. file for commitment today. 01/19: provided ECT education. declining medications, reports not eating. has gained 4 lbs since admission, however. poor insight into mental illness and therefore impaired judgment. refusing meds, VS. Reason for continued inpatient stay Substantial Risk for: harm to self and inability to function Time Spent With Patient Time: Total time managing care of this patient today __25__ minutes.
[2025-01-19 19:36] VITALS: BP 111/67; PULSE 75; RESP 16; TEMP 36.6; O2SAT 99
[2025-01-20 11:33] VITALS: BMI 25.2
--- NOTE | 2025-01-20 13:45 | P.PNPSI_ITS ---
Subjective Subjective Date of Service: 01/20/25 Reason For Visit: crisis Interim History: pt says today sucks. denies not wanting to eat, says of the issue, it doesn't go. no questions or complaints. MD reminds pt again of option for ODT tabs for medications if he doesn't want to swallow anything. states he would like to discharge from the hospital to return to his parents' house. per staff, refusing meds, vital signs. +depression. lonely. major outburst over roommate's snoring. Mental Status Exam Mental Status Exam Narrative: General appearance: Alert. communicating verbally. adequately dressed and groomed. Eye contact: fair. Motor:: general retardation.??? Manner/behavior: cooperative Speech:? decr amount, loudness. nml, rate. Mood: depressed Affect: Blunted Thought process/associations: linear, questionably logical Thought content:?pessimistic re Tx and improvement, phys, spiritual illness Hallucinations: Suspected. Internally preoccupied. Suicidality/self-destructive behavior: not reported Homicidally/violence: not reported.? Reliability: poor.? ? Judgment: poor.? ? Insight: poor Cognition: Alert Impulse control and emotional regulation: poor Diagnostics Vital Signs (24Hr): Vital Signs - 24 hr 01/19/25 19:36 Temperature 97.8 F Pulse Rate 75 Respiratory Rate 16 Blood Pressure 111/67 Pulse Oximetry 99 Oxygen Delivery Method Room Air BMI result Body Mass Index 25.2 Medications Medications Current Medications Acetaminophen (Acetaminophen 325 Mg Tablet) 650 mg PO Q6H PRN PRN Reason: Headache/Pain, Scale 1-10 Al Hydroxide/Mg Hydroxide (Magnesium Hydrox/Alum Hydrox 30 Ml Oral.Susp) 30 ml PO Q6H PRN PRN Reason: Heartburn/Nausea Gabapentin (Gabapentin 300 Mg Capsule) 300 mg PO BID [facility] Last Admin: 01/20/25 09:06 Dose: Not Given Hydroxyzine HCl (Hydroxyzine Hcl 50 Mg Tablet) 50 mg PO TID [facility] Last Admin: 01/20/25 09:06 Dose: Not Given Lorazepam (Lorazepam 1 Mg Tablet) 1 mg PO TID [facility] Last Admin: 01/20/25 09:06 Dose: Not Given Magnesium Hydroxide (Milk Of Magnesia 30 Ml Oral.Susp) 30 ml PO DAILY PRN PRN Reason: Constipation Nicotine Polacrilex (Nicotine Polacrilex 2 Mg Gum) 4 mg BUCCAL Q2H PRN PRN Reason: Nicotine Cravings Olanzapine (Olanzapine 7.5 Mg Tablet) 7.5 mg PO BEDTIME [facility] Last Admin: 01/19/25 21:49 Dose: Not Given Trazodone HCl (Trazodone Hcl 50 Mg Tablet) 50 mg PO BEDTIME PRN PRN Reason: insomnia Allergies Allergies Allergy/AdvReac Type Severity Reaction Status Date / Time No Known Allergies Allergy Verified 01/12/25 23:35 Assessment & Plan Assessment & Plan (1) Schizoaffective disorder: Status: Acute Code(s): F25.9 - Schizoaffective disorder, unspecified (2) Gallbladder attack: Status: Acute Code(s): K82.9 - Disease of gallbladder, unspecified Assessment and Plan: He was admitted because of severe depression. He has been refusing to eat has had very poor oral intake. He has a functional decline for several months because of his mental health issues. Has been refusing his medications as well. He apparently had mentioned that he was told he had gallstones. I was therefore asked to see him. Currently he does not have any tenderness. He denies any pain in the abdomen when asked It may be best to retrieve his records from [facility]. Otherwise, we can repeat his in our hospital. It does not appear that there is any indication for any urgent surgery at this time. Plan 39 yo male with reported past history of schizoaffective disorder, admitted after going missing for 24 hours and found hiding in the attic under the attic insulation. He has not been taking his medications for at least 2 months and has been showing functional decline, paranoia, anxiety, and behavioral change. 01/14: Restart Olanzapine. Start Ativan 1 mg TID for catatonia spectrum symptoms/behavior. Encourage medication compliance. Social work evaluation. Disposition planning. 01/15: Not eating or drinking. Minimal verbal and non-verbal communication. Internally preoccupied Paranoid. Will order admission blood work again in the hopes patient agrees to have them drawn. continue current management and treatment plan. 01/16: encouraged PO fluids. no eye contact. responded to 1 question only with a head shake. continue to offer medication and encourage PO intake. plan to file for commitment. surgical consult appreciated, will not consider anorexia as related to treatable medical condition. case d/w surgeon tianna. 01/18: more verbal today. states not eating bcse vomits after eating anything; not witnessed. reports having seen an kale ASSEMBLER CHASSIS. c/o depressed mood with hopelessness it will improve. states it is useless to try medications bcse he has tried so many and they don't work. educated re ECT as an option. continue to offer medication. file for commitment today. 01/19: provided ECT education. declining medications, reports not eating. has gained 4 lbs since admission, however. poor insight into mental illness and therefore impaired judgment. refusing meds, VS. 01/20: no change in presentation. in ante-room due to outburst at snoring roommate overnight. continue to offer medications and encourage PO intake. Reason for continued inpatient stay Substantial Risk for: inability to function and med/psych decompensation Time Spent With Patient Time: Total time managing care of this patient today ____ minutes.
[2025-01-20 20:00] VITALS: BP 116/72; PULSE 91; RESP 16; TEMP 37.1; O2SAT 97
--- NOTE | 2025-01-21 19:50 | P.PNPSI_ITS ---
Subjective Subjective Date of Service: 01/21/25 Reason For Visit: crisis Interim History: reports sleeping OK. mood so-so. per staff, refusing meds. c/o deep depression. poor PO intake. refusing calls from family. some juice/fluids. slept 8 hours. Mental Status Exam Mental Status Exam Narrative: General appearance: Alert. communicating verbally. adequately dressed and groomed. Eye contact: fair. Motor:: general retardation.??? Manner/behavior: cooperative Speech:? decr amount, loudness. nml, rate. Mood: so-so Affect: Blunted Thought process/associations: linear, questionably logical Thought content:?pessimistic re Tx and improvement, phys, spiritual illness Hallucinations: Suspected. Internally preoccupied. Suicidality/self-destructive behavior: not reported Homicidally/violence: not reported.? Reliability: poor.? ? Judgment: poor.? ? Insight: poor Cognition: Alert Impulse control and emotional regulation: poor Diagnostics Vital Signs (24Hr): Vital Signs - 24 hr 01/20/25 20:00 Temperature 98.7 F Pulse Rate 91 Respiratory Rate 16 Blood Pressure 116/72 Pulse Oximetry 97 Oxygen Delivery Method Room Air BMI result Body Mass Index 25.2 Medications Medications Current Medications Acetaminophen (Acetaminophen 325 Mg Tablet) 650 mg PO Q6H PRN PRN Reason: Headache/Pain, Scale 1-10 Al Hydroxide/Mg Hydroxide (Magnesium Hydrox/Alum Hydrox 30 Ml Oral.Susp) 30 ml PO Q6H PRN PRN Reason: Heartburn/Nausea Gabapentin (Gabapentin 300 Mg Capsule) 300 mg PO BID [facility] Last Admin: 01/21/25 08:43 Dose: Not Given Hydroxyzine HCl (Hydroxyzine Hcl 50 Mg Tablet) 50 mg PO TID [facility] Last Admin: 01/21/25 14:11 Dose: Not Given Lorazepam (Lorazepam 1 Mg Tablet) 1 mg PO TID [facility] Last Admin: 01/21/25 14:11 Dose: Not Given Magnesium Hydroxide (Milk Of Magnesia 30 Ml Oral.Susp) 30 ml PO DAILY PRN PRN Reason: Constipation Nicotine Polacrilex (Nicotine Polacrilex 2 Mg Gum) 4 mg BUCCAL Q2H PRN PRN Reason: Nicotine Cravings Olanzapine (Olanzapine Odt 10 Mg Tab.Rapdis) 10 mg TRANSLINGU BEDTIME [facility] Last Admin: 01/20/25 20:44 Dose: Not Given Olanzapine (Olanzapine Odt 10 Mg Tab.Rapdis) 5 mg TRANSLINGU Q4H PRN PRN Reason: anxiety/depression Trazodone HCl (Trazodone Hcl 50 Mg Tablet) 50 mg PO BEDTIME PRN PRN Reason: insomnia Allergies Allergies Allergy/AdvReac Type Severity Reaction Status Date / Time No Known Allergies Allergy Verified 01/12/25 23:35 Assessment & Plan Assessment & Plan (1) Schizoaffective disorder: Status: Acute Code(s): F25.9 - Schizoaffective disorder, unspecified (2) Gallbladder attack: Status: Acute Code(s): K82.9 - Disease of gallbladder, unspecified Assessment and Plan: He was admitted because of severe depression. He has been refusing to eat has had very poor oral intake. He has a functional decline for several months because of his mental health issues. Has been refusing his medications as well. He apparently had mentioned that he was told he had gallstones. I was therefore asked to see him. Currently he does not have any tenderness. He denies any pain in the abdomen when asked It may be best to retrieve his records from [facility]. Otherwise, we can repeat his in our hospital. It does not appear that there is any indication for any urgent surgery at this time. Plan 39 yo male with reported past history of schizoaffective disorder, admitted after going missing for 24 hours and found hiding in the attic under the attic insulation. He has not been taking his medications for at least 2 months and has been showing functional decline, paranoia, anxiety, and behavioral change. 01/14: Restart Olanzapine. Start Ativan 1 mg TID for catatonia spectrum symptoms/behavior. Encourage medication compliance. Social work evaluation. Disposition planning. 01/15: Not eating or drinking. Minimal verbal and non-verbal communication. Internally preoccupied Paranoid. Will order admission blood work again in the hopes patient agrees to have them drawn. continue current management and treatment plan. 01/16: encouraged PO fluids. no eye contact. responded to 1 question only with a head shake. continue to offer medication and encourage PO intake. plan to file for commitment. surgical consult appreciated, will not consider anorexia as related to treatable medical condition. case d/w surgeon tianna. 01/18: more verbal today. states not eating bcse vomits after eating anything; not witnessed. reports having seen an kale SOLAR ENGINEER. c/o depressed mood with hopelessness it will improve. states it is useless to try medications bcse he has tried so many and they don't work. educated re ECT as an option. continue to offer medication. file for commitment today. 01/19: provided ECT education. declining medications, reports not eating. has gained 4 lbs since admission, however. poor insight into mental illness and therefore impaired judgment. refusing meds, VS. 01/20: no change in presentation. in ante-room due to outburst at snoring roommate overnight. continue to offer medications and encourage PO intake. 01/21: no change in presentation or behaviors. refusing medications. Reason for continued inpatient stay Substantial Risk for: inability to function and med/psych decompensation Time Spent With Patient Time: Total time managing care of this patient today ____ minutes.
[2025-01-21 20:00] VITALS: BP 112/78; PULSE 71; RESP 16; TEMP 36.4; O2SAT 98
[2025-01-22 07:53] VITALS: BP 130/71; PULSE 70; RESP 16; TEMP 36.4; O2SAT 98
--- NOTE | 2025-01-22 16:41 | HO.PSYCHPN ---
Subjective Subjective Date of Service: 01/22/25 Reason For Visit: crisis Interim History: no change in presentation. poor eye contact, ambivalent responses. states he tried eating yesterday and had vomiting and diarrhea shortly after. did nt show to staff and unreported by staff this morning. encouraged pt to try zydis. per staff, slept 8 hours. ate 90% of lunch, otherwise nothing. passive SI, no plan. taking fluids. more visible on unit, some verbal participation in social interactions. Mental Status Exam Mental Status Exam Narrative: General appearance: Alert. communicating verbally. adequately dressed and groomed. Eye contact: poor Motor:: general retardation.??? Manner/behavior: cooperative Speech:? decr amount, loudness. nml, rate. Mood: depressed Affect: Blunted Thought process/associations: linear, questionably logical Thought content:?reports vomiting/diarrhea after eating Hallucinations: Suspected. Internally preoccupied. Suicidality/self-destructive behavior: passive Homicidally/violence: not reported.? Reliability: poor.? ? Judgment: poor.? ? Insight: poor Cognition: Alert Impulse control and emotional regulation: poor Diagnostics Vital Signs (24Hr): Vital Signs - 24 hr 01/21/25 20:00 01/22/25 07:53 Temperature 97.5 F 97.5 F Pulse Rate 71 70 Respiratory Rate 16 16 Blood Pressure 112/78 130/71 Pulse Oximetry 98 98 Oxygen Delivery Method Room Air Room Air BMI result Body Mass Index 25.2 Medications Medications Current Medications Acetaminophen (Acetaminophen 325 Mg Tablet) 650 mg PO Q6H PRN PRN Reason: Headache/Pain, Scale 1-10 Al Hydroxide/Mg Hydroxide (Magnesium Hydrox/Alum Hydrox 30 Ml Oral.Susp) 30 ml PO Q6H PRN PRN Reason: Heartburn/Nausea Gabapentin (Gabapentin 300 Mg Capsule) 300 mg PO BID [facility] Last Admin: 01/22/25 09:11 Dose: Not Given Hydroxyzine HCl (Hydroxyzine Hcl 50 Mg Tablet) 50 mg PO TID [facility] Last Admin: 01/22/25 14:40 Dose: Not Given Magnesium Hydroxide (Milk Of Magnesia 30 Ml Oral.Susp) 30 ml PO DAILY PRN PRN Reason: Constipation Nicotine Polacrilex (Nicotine Polacrilex 2 Mg Gum) 4 mg BUCCAL Q2H PRN PRN Reason: Nicotine Cravings Olanzapine (Olanzapine Odt 10 Mg Tab.Rapdis) 10 mg TRANSLINGU BEDTIME [facility] Last Admin: 01/21/25 22:11 Dose: Not Given Olanzapine (Olanzapine Odt 10 Mg Tab.Rapdis) 5 mg TRANSLINGU Q4H PRN PRN Reason: anxiety/depression Trazodone HCl (Trazodone Hcl 50 Mg Tablet) 50 mg PO BEDTIME PRN PRN Reason: insomnia Allergies Allergies Allergy/AdvReac Type Severity Reaction Status Date / Time No Known Allergies Allergy Verified 01/12/25 23:35 Assessment & Plan Assessment & Plan (1) Schizoaffective disorder: Status: Acute Code(s): F25.9 - Schizoaffective disorder, unspecified (2) Gallbladder attack: Status: Acute Code(s): K82.9 - Disease of gallbladder, unspecified Assessment and Plan: He was admitted because of severe depression. He has been refusing to eat has had very poor oral intake. He has a functional decline for several months because of his mental health issues. Has been refusing his medications as well. He apparently had mentioned that he was told he had gallstones. I was therefore asked to see him. Currently he does not have any tenderness. He denies any pain in the abdomen when asked It may be best to retrieve his records from [facility]. Otherwise, we can repeat his in our hospital. It does not appear that there is any indication for any urgent surgery at this time. Plan 39 yo male with reported past history of schizoaffective disorder, admitted after going missing for 24 hours and found hiding in the attic under the attic insulation. He has not been taking his medications for at least 2 months and has been showing functional decline, paranoia, anxiety, and behavioral change. 01/14: Restart Olanzapine. Start Ativan 1 mg TID for catatonia spectrum symptoms/behavior. Encourage medication compliance. Social work evaluation. Disposition planning. 01/15: Not eating or drinking. Minimal verbal and non-verbal communication. Internally preoccupied Paranoid. Will order admission blood work again in the hopes patient agrees to have them drawn. continue current management and treatment plan. 01/16: encouraged PO fluids. no eye contact. responded to 1 question only with a head shake. continue to offer medication and encourage PO intake. plan to file for commitment. surgical consult appreciated, will not consider anorexia as related to treatable medical condition. case d/w surgeon tianna. 01/18: more verbal today. states not eating bcse vomits after eating anything; not witnessed. reports having seen an kale TRAVEL COUNSELOR [employer]. c/o depressed mood with hopelessness it will improve. states it is useless to try medications bcse he has tried so many and they don't work. educated re ECT as an option. continue to offer medication. file for commitment today. 01/19: provided ECT education. declining medications, reports not eating. has gained 4 lbs since admission, however. poor insight into mental illness and therefore impaired judgment. refusing meds, VS. 01/20: no change in presentation. in ante-room due to outburst at snoring roommate overnight. continue to offer medications and encourage PO intake. 01/21: no change in presentation or behaviors. refusing medications. 01/22: reports he tried eating yesterday and vomited and had diarrhea shortly after. neither vomiting nor diarrhea was observed by staff; in fact, they were not reported to MD in nursing report this morning. pt was instructed to show vomit and diarrhea to staff should such an event occur again. refusing meds. drinking fluids. passive SI reported. Reason for continued inpatient stay Substantial Risk for: harm to self and inability to function Time Spent With Patient Time: Total time managing care of this patient today ____ minutes.
[2025-01-22 19:45] VITALS: BP 127/83; PULSE 105; RESP 16; TEMP 37; O2SAT 94
--- NOTE | 2025-01-23 14:58 | HO.PSYCHPN ---
Subjective Subjective Date of Service: 01/23/25 Reason For Visit: crisis Interim History: court tomorrow. states eating salad, kept it down last night. says can't eat greasy food; educates re Sx of gallbladder Dz. ambivalent re whether people whose hoe he lives in are his actual parents. per staff, refusing meds. ate 10% breakfast, 75% dinner. +anx, SI (passive). Mental Status Exam Mental Status Exam Narrative: General appearance: Alert. communicating verbally. adequately dressed and groomed. Eye contact: fair Motor:: general retardation.??? Manner/behavior: cooperative Speech:? decr amount, loudness. nml, rate. Mood: depressed Affect: Blunted Thought process/associations: linear, questionably logical Thought content:?reports keeping salad down for dinner last night Hallucinations: Suspected. Internally preoccupied. Suicidality/self-destructive behavior: passive Homicidally/violence: not reported.? Reliability: poor.? ? Judgment: poor.? ? Insight: poor Cognition: Alert Impulse control and emotional regulation: poor Diagnostics Vital Signs (24Hr): Vital Signs - 24 hr 01/22/25 19:45 Temperature 98.6 F Pulse Rate 105 H Respiratory Rate 16 Blood Pressure 127/83 Pulse Oximetry 94 Oxygen Delivery Method Room Air BMI result Body Mass Index 25.2 Medications Medications Current Medications Acetaminophen (Acetaminophen 325 Mg Tablet) 650 mg PO Q6H PRN PRN Reason: Headache/Pain, Scale 1-10 Al Hydroxide/Mg Hydroxide (Magnesium Hydrox/Alum Hydrox 30 Ml Oral.Susp) 30 ml PO Q6H PRN PRN Reason: Heartburn/Nausea Gabapentin (Gabapentin 300 Mg Capsule) 300 mg PO BID [facility] Last Admin: 01/23/25 09:20 Dose: Not Given Hydroxyzine HCl (Hydroxyzine Hcl 50 Mg Tablet) 50 mg PO TID [facility] Last Admin: 01/23/25 14:41 Dose: Not Given Magnesium Hydroxide (Milk Of Magnesia 30 Ml Oral.Susp) 30 ml PO DAILY PRN PRN Reason: Constipation Nicotine Polacrilex (Nicotine Polacrilex 2 Mg Gum) 4 mg BUCCAL Q2H PRN PRN Reason: Nicotine Cravings Olanzapine (Olanzapine Odt 10 Mg Tab.Rapdis) 10 mg TRANSLINGU BEDTIME [facility] Last Admin: 01/22/25 21:35 Dose: Not Given Olanzapine (Olanzapine Odt 10 Mg Tab.Rapdis) 5 mg TRANSLINGU Q4H PRN PRN Reason: anxiety/depression Trazodone HCl (Trazodone Hcl 50 Mg Tablet) 50 mg PO BEDTIME PRN PRN Reason: insomnia Allergies Allergies Allergy/AdvReac Type Severity Reaction Status Date / Time No Known Allergies Allergy Verified 01/12/25 23:35 Assessment & Plan Assessment & Plan (1) Schizoaffective disorder: Status: Acute Code(s): F25.9 - Schizoaffective disorder, unspecified (2) Gallbladder attack: Status: Acute Code(s): K82.9 - Disease of gallbladder, unspecified Assessment and Plan: He was admitted because of severe depression. He has been refusing to eat has had very poor oral intake. He has a functional decline for several months because of his mental health issues. Has been refusing his medications as well. He apparently had mentioned that he was told he had gallstones. I was therefore asked to see him. Currently he does not have any tenderness. He denies any pain in the abdomen when asked It may be best to retrieve his records from [facility]. Otherwise, we can repeat his in our hospital. It does not appear that there is any indication for any urgent surgery at this time. Plan 39 yo male with reported past history of schizoaffective disorder, admitted after going missing for 24 hours and found hiding in the attic under the attic insulation. He has not been taking his medications for at least 2 months and has been showing functional decline, paranoia, anxiety, and behavioral change. 01/14: Restart Olanzapine. Start Ativan 1 mg TID for catatonia spectrum symptoms/behavior. Encourage medication compliance. Social work evaluation. Disposition planning. 01/15: Not eating or drinking. Minimal verbal and non-verbal communication. Internally preoccupied Paranoid. Will order admission blood work again in the hopes patient agrees to have them drawn. continue current management and treatment plan. 01/16: encouraged PO fluids. no eye contact. responded to 1 question only with a head shake. continue to offer medication and encourage PO intake. plan to file for commitment. surgical consult appreciated, will not consider anorexia as related to treatable medical condition. case d/w surgeon tianna. 01/18: more verbal today. states not eating bcse vomits after eating anything; not witnessed. reports having seen an kale DIRECTOR TELEVISION NEWS. c/o depressed mood with hopelessness it will improve. states it is useless to try medications bcse he has tried so many and they don't work. educated re ECT as an option. continue to offer medication. file for commitment today. 01/19: provided ECT education. declining medications, reports not eating. has gained 4 lbs since admission, however. poor insight into mental illness and therefore impaired judgment. refusing meds, VS. 01/20: no change in presentation. in ante-room due to outburst at snoring roommate overnight. continue to offer medications and encourage PO intake. 01/21: no change in presentation or behaviors. refusing medications. 01/22: reports he tried eating yesterday and vomited and had diarrhea shortly after. neither vomiting nor diarrhea was observed by staff; in fact, they were not reported to MD in nursing report this morning. pt was instructed to show vomit and diarrhea to staff should such an event occur again. refusing meds. drinking fluids. passive SI reported. 01/23: no change in presentation. passive SI, delusions his parents aren't his parents. was able to eat and keep down some salad. notes he can't eat greasy food; he was educated that that is a Sx of gallbladder disease. court tomorrow. Reason for continued inpatient stay Substantial Risk for: inability to function and med/psych decompensation Time Spent With Patient Time: Total time managing care of this patient today __35__ minutes.
[2025-01-23 20:06] VITALS: BP 119/81; PULSE 89; RESP 16; TEMP 36.4; O2SAT 100
[2025-01-24 07:20] VITALS: BP 83/46; PULSE 62; RESP 14; TEMP 36.4; O2SAT 95
--- NOTE | 2025-01-24 12:23 | PM.PSYDC ---
DS: Providers Provider Date of Service: 01/24/25 Date of admission: 01/13/25 15:37 Date of discharge: 01/24/25 Primary care physician: Unknown Physician Consults: 01/17/25 10:34 Consult to General Surgery Routine Consulting Provider: [facility] General Surgeons Reason for consultation: per [facility] ED eval 01/10, GB removal recommended. refusing PO here. DS: Diagnosis Discharge Diagnosis (1) Schizoaffective disorder: Status: Acute Mental Status Exam Mental Status Exam Narrative: General appearance: Alert. communicating verbally. adequately dressed and groomed. Eye contact: fair Motor:: general retardation.??? Manner/behavior: cooperative Speech:? nml amount, loudness. nml, rate. Mood: fine Affect: Blunted Thought process/associations: linear, questionably logical Thought content:?reports eating, denies mental illness or SI Hallucinations: denies Suicidality/self-destructive behavior: denies Homicidally/violence: denies Reliability: fair ? Judgment: poor.? ? Insight: poor Cognition: Alert DS: Summary Hospital Course Hospital Course: per 01/14 admission note: HPI Subjective Notes: Section 12B Narrative: Patient is a 39 yo male who lives in [place] with family. Patient carries a diagnosis of schizoaffective disorder. Patient was brought to the hospital after he went missing for 24 hours and was found in his attic under the insulation hiding. Patient has been uncooperative providing history with ED, CARE team and this account underwriter. He shrugs his shoulder or nods but is not communicating verbally. Patient has not been taking medications for at least the past 2 months but reported to be functional when taking his Olanzapine. Patient's sister reported to CARE team he has not been sleeping, acting scared and hasn't spoken to family last 2 weeks. Patient seen in his room. He is awake. Looks at the ceiling. Poor eye contact. Shrugs his shoulder when asked how he's feeling. Non-verbal. Internally preoccupied. Past Psychiatric History: - Prior inpatient treatment at [facility] and [facility] reported in CARE team assessment. - Hx of VNA services. Medical Evaluation Reviewed: Yes [facility] Family History: Brother OD, unknown if intentional Social History: Born and raised in [place] until age 13 when he moved to [facility]. Lives with family in [place]. . Has 3 children. On disability. 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 Substance History: none reported Trauma History: unknown Precis: 39 yo male with reported past history of schizoaffective disorder, admitted after going missing for 24 hours and found hiding in the attic under the attic insulation. He has not been taking his medications for at least 2 months and has been showing functional decline, paranoia, anxiety, and behavioral change. 01/14: Restart Olanzapine. Start Ativan 1 mg TID for catatonia spectrum symptoms/behavior. Encourage medication compliance. Social work evaluation. Disposition planning. 01/15: Not eating or drinking. Minimal verbal and non-verbal communication. Internally preoccupied Paranoid. Will order admission blood work again in the hopes patient agrees to have them drawn. continue current management and treatment plan. 01/16: encouraged PO fluids. no eye contact. responded to 1 question only with a head shake. continue to offer medication and encourage PO intake. plan to file for commitment. surgical consult appreciated, will not consider anorexia as related to treatable medical condition. case d/w surgeon tianna. 01/18: more verbal today. states not eating bcse vomits after eating anything; not witnessed. reports having seen an kale STATISTICAL GENETICIST. c/o depressed mood with hopelessness it will improve. states it is useless to try medications bcse he has tried so many and they don't work. educated re ECT as an option. continue to offer medication. file for commitment today. 01/19: provided ECT education. declining medications, reports not eating. has gained 4 lbs since admission, however. poor insight into mental illness and therefore impaired judgment. refusing meds, VS. 01/20: no change in presentation. in ante-room due to outburst at snoring roommate overnight. continue to offer medications and encourage PO intake. 01/21: no change in presentation or behaviors. refusing medications. 01/22: reports he tried eating yesterday and vomited and had diarrhea shortly after. neither vomiting nor diarrhea was observed by staff; in fact, they were not reported to MD in nursing report this morning. pt was instructed to show vomit and diarrhea to staff should such an event occur again. refusing meds. drinking fluids. passive SI reported. 01/23: no change in presentation. passive SI, delusions his parents aren't his parents. was able to eat and keep down some salad. notes he can't eat greasy food; he was educated that that is a Sx of gallbladder disease. court tomorrow. 01/24: no change in presentation. denies mental illness, states he is in spiritual crisis. denioes any AH since years ago. per staff, refusing meds. ate all three meals over past 24H. conversing fluidly. per contact with legal service specialist, pt's family agreeable to have him return to their care unmedicated and as is. court canceled, pt discharged to care of family. Time Spent with Patient Time attestation: Total time managing care of this patient today __45__ minutes. Discharge Plan Discharge Anticipated Discharge Date/Time: 01/24/25 12:20 Patient Disposition: Home, Self-Care Discharge Diagnosis: Schizoaffective Disorder Gallbladder Disease Referrals: Physician,Unknown J [Primary Care Provider] - 1 Week Discharge Medications: Discontinued trazodone 50 mg tablet 50 mg PO BEDTIME PRN (Reason: insomnia) hydroxyzine pamoate 50 mg capsule 50 mg PO TID olanzapine 7.5 mg tablet 7.5 mg PO BEDTIME gabapentin 300 mg capsule 300 mg PO BID Discharge Orders: Discharge Order (Routine); Ordered 01/24/25 Ordered By: Kong Gaona Diet: Low fat, low cholesterol Activity on Discharge: As tolerated Stand Alone Forms: Patient Portal Discharge page Print Language: Tristanian Care Plan Goals: remain safe and stable in the outpatient treatment setting Health Concerns: Gallbladder Disease Plan of Treatment: seek out mental health treatment in your area. Assessment: not at imminent risk of harm to self or others
== END 2025-01-24 15:45 | disposition home or self-care (01) | DRG 885 ==
LOC: HO.ED 01-13 02:49 → HO.PADLT16 01-13 15:42
PROVIDERS: Admitting Provider Registered Nurse; Emergency Provider Emergency Medicine Emergency Medical Services; Visit Provider Psychiatry & Neurology Psychiatry
DX: F25.9 Schizoaffective disorder, unspecified (principal); R45.851 Suicidal ideations; K82.9 Disease of gallbladder, unspecified
CPT/HCPCS: 99284; S9485

== ENCOUNTER → 2025-01-13 15:37 | Outpatient (BNV) | payer MEDICARE, MEDICAID, SELFPAY | PROVIDERS: Admitting Provider Registered Nurse; Emergency Provider Emergency Medicine Emergency Medical Services; Visit Provider Psychiatry & Neurology Psychiatry | DX: F25.9 Schizoaffective disorder, unspecified (principal); K82.9 Disease of gallbladder, unspecified | CPT/HCPCS: 90792; 99232 ==

== ENCOUNTER → 2025-01-13 15:37 | Outpatient (BNV) | payer MEDICARE, MEDICAID, SELFPAY | PROVIDERS: Admitting Provider Registered Nurse; Emergency Provider Emergency Medicine Emergency Medical Services; Visit Provider Surgery | DX: F25.9 Schizoaffective disorder, unspecified (principal) | CPT/HCPCS: 99222 ==